=== PATIENT | male | born 1945 | race Caucasian/White ===

== ENCOUNTER 2023-07-04 11:02 | Emergency (ER) | payer MEDICARE, SELFPAY ==
[2023-07-04 11:07] VITALS: BP 130/72
--- NOTE | 2023-07-04 11:37 | ED.GENMED ---
History of Present Illness
General
Chief Complaint: Musculo-Skeletal Complaint
Time Seen by Provider: 07/04/23 11:14
Travel History
Have you had any contact with someone who has COVID-19?: No
Do you have any symptoms of coronavirus? Fever > 100 degrees, chills, cough, shortness of breath, sore throat, loss of taste or smell, muscle aches, or headache?: No
History of Present Illness
History of Present Illness:
77-year-old male with no significant past medical history presents to the emergency department for evaluation of nontraumatic right hip pain ongoing for the past 2 weeks. He states it is worse when he attempts to stand up from a seated position.
Denies any recent falls. Pain is primarily present to the right flank/lateral abdomen but does radiate to the right inner thigh. He does use a cane at baseline, continues to feel steady when walking. States the pain causes him to 'freeze'.
Denies any medication ingestion today for pain control
Review of Systems
Review of Systems
Allergies reviewed?: Yes
All Other Systems: ROS reviewed and negative except as documented in HPI and ROS
Phy Exam
Physical Exam
Physical Exam:
GEN: Well appearing, NAD, WDWN
HEENT: Oral mucosa moist, no scleral icterus
Cardiac: Regular rate
Lung: No respiratory distress, no tachypnea
MSK: No gross deformity or injuries. Right hip range of motion is normal in all basilio, no crepitus, normal strength
Skin: Good color, no pallor or jaundice, no rashes
Neuro: AO x3, moves all extremities freely
Psych: Calm, cooperative
Course
Orders/Labs/Results
Orders:
Orders
07/04/23 11:37
Ketorolac [Toradol] 30 mg IM NOW STA
CR Hip - RT w/wo Pel 2-3 Vw* Urgent
Comment:
Reason For Exam: non traumatic R hip pain
Include a pelvis x-ray?: Yes
07/04/23 13:21
Diclofenac [Voltaren] 75 mg PO NOW STA
Vital Signs
Initial and Last Documented VS:
Initial Vital Signs
Temp Pulse Resp BP Pulse Ox
98 F 68 20 130/72 99
07/04/23 11:07 07/04/23 11:07 07/04/23 11:07 07/04/23 11:07 07/04/23 11:07
Last Documented Vital Signs
Temp Pulse Resp BP Pulse Ox
98 F 68 20 130/72 99
07/04/23 11:07 07/04/23 11:07 07/04/23 11:07 07/04/23 11:07 07/04/23 11:07
MDM/Problems Addressed
MDM/Problems Addressed:
X-rays of the right hip and pelvis show no acute osseous abnormality independently interpreted by me. Patient's symptoms are compatible with a hip flexor muscle strain, he did improve with NSAIDs in the emergency department. Discussed supportive
care measures and recommend primary care follow-up for orthopedic follow-up to discuss physical therapy
*Critical Care Note
Total Time (30-74mins, 75-104mins- exclusive of procedures): Not Applicable
ED Attending Note
-
Portions of this chart may have been created with voice recognition software.� Occasional wrong word or��sound alike� substitutions may have occurred due to the inherent limitations of voice recognition software.
Discharge Plan
Departure
Patient Disposition: Home (Routine Discharge)
Date of Disposition: 07/04/23
Time of Disposition: 12:54
Patient with high blood pressure during this ER visit?: No
Discharge Problem:
Strain of flexor muscle of right hip
Instructions: Hip Pain ED
Prescriptions:
New
diclofenac sodium 75 mg tablet,delayed release (DR/EC)
75 mg PO BID 7 Days Qty: 14 0RF
Referrals:
Keyur Bertrand MD [Active] -
Interventions
Interventions:
*Risk Screen - Suicide Last Done: 07/04/23 11:07
*General Assessment Last Done: 07/04/23 11:07
*Neglect/Abuse Screening Last Done: 07/04/23 11:07
ED- Fall Risk Assessment Last Done: 07/04/23 11:22
*ED COVID-19 Vaccine History Last Done: 07/04/23 11:51
*Nursing Disposition Last Done: 07/04/23 13:29
ED-Musculoskeletal Assessment Last Done: 07/04/23 11:22
Discharge Date and Time
Discharge Date/Time: 07/04/23 13:23
Print Language: [email or web address]
[2023-07-04] MEDS: TORADOL 30 MG IM (11:52)
== END 2023-07-04 13:23 | disposition home or self-care (01) ==
LOC: EMR 11:02
PROVIDERS: EMERGENCY PHYSICIAN Emergency Medicine; FAMILY PHYSICIAN Internal Medicine
DX: M25.551 Pain in right hip (principal)
CPT/HCPCS: 99283; 96372; 73502